=== PATIENT | male | born 1975 | race Caucasian/White ===

== ENCOUNTER 2021-12-30 16:38 | Emergency (ER) | payer MEDICAID ==
[2021-12-30] MEDS ORDERED: Sodium Chloride 0.9% 10 ML Syringe FLUSH PRN (16:51)
[2021-12-30] MEDS ORDERED: Prochlorperazine 10 MG/2 ML SDV IVPUSH STA (16:52)
[2021-12-30] MEDS ORDERED: Sodium Chloride 0.9% 1,000 ML IV SCH (17:00)
[2021-12-30 18:00] LABS: ESTIMATED GFR 75 mL/min (>60)
== END 2021-12-30 19:03 | disposition home or self-care (01) ==
LOC: FB.ED 16:38
DX: R07.2 Precordial pain (principal); F17.210 Nicotine dependence, cigarettes, uncomplicated
CPT/HCPCS: 36415; 80053; 84484; 85025; 93005; 99284